=== PATIENT | male | born 1985 | race Caucasian/White ===

== ENCOUNTER 2021-09-21 06:49 | Day surgery (SDC) | payer OTHER ==
[~2021-09-21] VITALS: Ht 182.9 cm; Wt 91.2 kg
[~2021-09-21 06:49] MED LIST: MESA1.2T PO; NS 1,000 ML IV ONE
[2021-09-21] MEDS ORDERED: LIDOCAINE 2% 100MG/5ML SDV (FOR ANES.) As Ordered ONE (07:46)
[2021-09-21] MEDS ORDERED: propofoL 200 MG/20 ML VIAL As Ordered ONE ×2 (07:46→07:54)
[2021-09-21 08:35] VITALS: BP 102/66
== END 2021-09-21 08:50 | disposition home or self-care (01) ==
LOC: M OPP 06:49
PROVIDERS: ATTEND Internal Medicine Gastroenterology
DX: K62.1 Rectal polyp (principal); K63.89 Other specified diseases of intestine; K64.0 First degree hemorrhoids; K51.20 Ulcerative (chronic) proctitis without complications; Z79.1 Long term (current) use of non-steroidal anti-inflammatories (NSAID); F17.220 Nicotine dependence, chewing tobacco, uncomplicated

== ENCOUNTER 2021-11-06 12:56 | Emergency (ER) | payer OTHER ==
[~2021-11-06] VITALS: Ht 188 cm; Wt 94.2 kg
[~2021-11-06 12:56] MED LIST changes: -NS 1,000 ML IV ONE
[2021-11-06] MEDS ORDERED: KETOROLAC 30 MG/ML 1ML VIAL IM ONE (14:45)
[2021-11-06] MEDS ORDERED: CYCL5TAB PO (16:18)
[2021-11-06 16:23] VITALS: BP 111/64
== END 2021-11-06 16:43 | disposition home or self-care (01) ==
LOC: M ED 12:56
DX: S39.012A Strain of muscle, fascia and tendon of lower back, initial encounter (principal); M51.36 Other intervertebral disc degeneration, lumbar region; M51.37 Other intervertebral disc degeneration, lumbosacral region; X50.0XXA Overexertion from strenuous movement or load, initial encounter; Y92.9 Unspecified place or not applicable; Y93.B9 Activity, other involving muscle strengthening exercises; Y99.9 Unspecified external cause status; K51.90 Ulcerative colitis, unspecified, without complications; Z79.899 Other long term (current) drug therapy
CPT/HCPCS: 72131; 96372; 99283; J1885